=== PATIENT | male | born 1935 | race Caucasian/White ===

== ENCOUNTER 2020-11-12 17:10 | Outpatient (RCR) | payer MEDICARE, SELFPAY | END 2020-11-12 23:59 | LOC: IMMUN 17:10 | PROVIDERS: PCP Family Medicine; Visit Provider Family Medicine | DX: Z23 Encounter for immunization (principal) | CPT/HCPCS: 0011A; 0012A ==

== ENCOUNTER 2021-02-20 09:38 | Day surgery (SDC) | payer MEDICARE, SELFPAY ==
--- NOTE | 2021-02-19 11:06 | EKG12_ITS ---
Test Reason : PRE-OP Blood Pressure : / mmHG Vent. Rate : 088 BPM Atrial Rate : 088 BPM P-R Int : 206 ms QRS Dur : 130 ms QT Int : 362 ms P-R-T Axes : 040 -48 081 degrees QTc Int : 438 ms Normal sinus rhythm Left axis deviation Left bundle branch block Abnormal ECG Confirmed by HARPREET HERNANDES, LUIZ ([id number]), editor managing newspaper JASMIN SANTILLAN ([id number]) on 02/19/2021 2:27:47 PM Referred By: Omi Olsen Confirmed By:LUIZ MULLINS MD
[2021-02-20] VITALS (7 sets, daily range): BP systolic 118–165; BP diastolic 61–76; PULSE 70–90; RESP 16–18; TEMP 36.2–36.8; O2SAT 96–100; BMI 21.7
[2021-02-20] MEDS: Lactated Ringers 1,000 ML 100 ML IV (10:26)
[2021-02-20 11:05] LABS: Bedside Glucose 132 mg/dL (70-110)
[2021-02-20] MEDS: Cefazolin 2 GM in 0.9% Normal Saline 100 ML IV (13:35)
--- NOTE | 2021-02-20 13:43 | PCM.DC ---
Discharge Instructions Diet Discharge Diet: No restrictions Dressing / Incision Call your doctor if your incision/area has: Continuous Slow Oozing, Increased Pain/ Swelling, Increased Redness and Foul Smelling Discharge Call your doctor if you observe: Fever of 101 or Higher, Numbness or Tingling, Shortness of breath, Dizziness, Calf discomfort and Uncontrolled pain Follow Up Care Please Follow Up With: Omi Olsen MD Test Results: Test results from this visit will be discussed in further detail at your follow-up appointment, if applicable. Discharge Plan Admission Primary Reason for Your Visit: left stent placement Attending Provider: Omi Olsen Primary Care Provider: Bert Siegel Discharge Orders/Prescriptions Prescriptions: New ciprofloxacin HCl [Cipro] 500 mg tablet 500 mg PO BID Qty: 6 RF: 0 Continued aspirin 325 mg Tablet 162.5 mg PO DAILY RF: 0 isosorbide mononitrate 30 mg tablet extended release 24 hr 30 mg PO DAILY RF: 0 fenofibrate micronized 200 mg Capsule 200 mg PO DAILY RF: 0 simvastatin 40 mg tablet 40 mg PO QHS RF: 0 trandolapril 1 mg tablet 1 mg PO DAILY RF: 0 Janumet 50-1,000 mg tablet 1 tab PO BID RF: 0 tramadol 50 mg Tablet 50 mg PO Q6H PRN (Reason: Pain) RF: 0 Referrals / Follow Up: Omi Olsen MD [STAFF PHYSICIAN] - Bert Siegel MD [Primary Care Provider] - Disposition Discharge Orders: Discharge Patient (Routine); Ordered 02/20/21 Ordered By: Dr. Omi Olsen
--- NOTE | 2021-02-20 13:44 | PCM.HP.STD ---
HPI - General HPI Narrative RONNY REAGAN, is a 85 M who presents with an obstructing stone in the left ureter he has a history of coronary artery disease was followed by Dr. Marin but despite our best efforts were not able to get any records and the patient could not get a cardiology appointment before this visit he has been having pain from the stone so can place a stent, anesthesia did not want up in the sleep until we get cardiac clearance. So we can place a stent and then after cardiac clearance with a bring him back to do laser lithotripsy. [facility] Medical History (Updated 02/20/21 @ 13:[address] Omi Olsen MD) Arthritis Blind right eye CAD (coronary artery disease) Cardiology follow-up encounter Diabetes High cholesterol History of atrial fibrillation History of edema Hx of fracture of arm Hypertension Non-smoker Shortness of breath on exertion Home Medications Janumet 1 tab PO BID 02/14/21 [History Last Taken Unknown] aspirin 162.5 mg PO DAILY 02/14/21 [History Last Taken 02/11/21] fenofibrate micronized 200 mg PO DAILY 02/14/21 [History Last Taken Unknown] isosorbide mononitrate 30 mg PO DAILY 02/14/21 [History Last Taken Unknown] simvastatin 40 mg PO QHS 02/14/21 [History Last Taken Unknown] trandolapril 1 mg PO DAILY 02/14/21 [History Last Taken Unknown] tramadol 50 mg PO Q6H PRN 02/19/21 [History Last Taken Unknown] ciprofloxacin HCl [Cipro] 500 mg PO BID #6 tab 02/20/21 [Rx Last Taken Unknown] Allergy/AdvReac Type Severity Reaction Status Date / Time No Known Allergies Allergy Verified 02/14/21 09:57 Surgical History (Updated 02/14/21 @ 10:15 by Keesha Jose) Hx of bilateral inguinal hernia repair Hx of cataract surgery Hx of inguinal hernia repair Social History Smoking Status: Never smoker Vital Signs Vital Signs Vital Signs: 02/20/21 10:11 Temperature 97.1 F L Temperature Source Oral Pulse Rate 90 Respiratory Rate 18 Respiratory Pattern Normal Blood Pressure 149/76 H Blood Pressure Mean 100 Blood Pressure Source Monitor Blood Pressure Position Semi-Fowlers Blood Pressure Location Left Arm Pulse Ox 98 Oxygen Delivery Method Room Air Weight Weight: 68.6 kg Body Mass Index (BMI) 21.7 Physical Exam Const alert and oriented x3 General Appearance: cooperative HEENT normocephalic, head/scalp atraumatic, EAC's normal and TM's normal bilaterally Eyes PERRL and EOMs intact bilaterally Pupil: sluggish Neck no lymphadenopathy, supple and no JVD General: trachea midline Lymph Lymphatic: no lymphadenopathy noted, lymphedema and lymphadenopathy Resp normal respiratory effort, normal air movement and clear to auscultation bilaterally Cardio regular rate, regular rhythm and peripheral pulses 2+ throughout GI soft to palpation, non-tender and non-distended Extremity normal capillary refill and no clubbing, cyanosis or edema General Extremity: no tenderness to palpation of joints or extremities Skin no rashes or lesions noted General Skin Exam: turgor normal Lesions: no lesions Rashes: no rashes Neuro CN's II-XII intact bilaterally Speech: speech normal Motor Exam: strength 5/5 throughout; Negative for general weakness Psych thought process normal, cooperative and affect normal Appearance: appropriate Results Lab / Micro Data Labs: Laboratory Results - last 24 hr 02/20/21 10:07 POC Glucose 132 H Assessment & Plan Assessment/Plan (1) Left ureteral calculus: PLAN: Plan for cystoscopy left stent placement after cardiac clearance will bring back for lithotripsy.
[2021-02-20] MEDS: Lidocaine Jelly 2% 20 ML Syringe (URO-JET) 20 APPLIC (13:48)
--- NOTE | 2021-02-20 14:06 | OP.PCM_ITS ---
Report of Operation Date of Procedure: 02/20/21 Pre-Operative Diagnosis: Large left ureteral calculus Post-Operative Diagnosis: Patient had passed a stone large bladder stone Surgery/Procedure Performed:: Cystoscopy laser of bladder stone, cystolitholapaxy, left retrograde pyelogram no stent Description of Surgical Findings:: Patient was taken back to the operating room after smooth induction of a MAC local anesthesia planned procedure today was a cystoscopy stent placement of the left side for an obstructing stone is fairly large seen on CAT scan at [facility]. The patient was taken back to the operating room and smooth induction of MAC local, penis and testicles were prepped and draped in usual sterile fashion I went into the bladder with a 21 [place] rigid cystourethroscope went inside the bladder I saw a very large 1.5 cm stone in the base of the bladder which I think it past from the left ureter, the left ureter was fairly capacious and wide open, also was a very strange upward facing ureter. At this point the patient was under MAC local he tolerated the cystoscopy fairly well so I proceeded with laser lithotripsy at this large stone and the stone was broken up into small pieces all evacuated out of the bladder. I then had to use an all bronze bridge and a Glidewire and a Pollack catheter and cannulated the left ureteral orifice which is very difficult orifice account cannulate given the strange location and strange way he was pointing inside the bladder I was able to get the Pollack catheter in the ureter and performed a retrograde pyelogram there was some J hooking of the ureter in the proximal ureter but then in the distal ureter contrast flowed fairly easily all the way down and there appeared to be no stone in the ureter. Therefore no stent was placed. I drained the bladder. Anesthesia was reversed. I will see him in the office for checkup and ultrasound of his kidney. Surgeon: Raúl Type of Anesthesia: General Drains: none Admit VTE Documentation VTE Present on Admission: No VTE Mechan Device Prophylaxis: SCD's
== END 2021-02-20 15:46 ==
LOC: SDC 09:39 → AC 09:40
PROVIDERS: PCP Family Medicine; Referring Provider Urology; Visit Provider Urology
PROC: (CPT 52317; principal; 2021-02-20 11:55)
DX: N21.0 Calculus in bladder (principal); I25.10 Atherosclerotic heart disease of native coronary artery without angina pectoris; M19.90 Unspecified osteoarthritis, unspecified site; E11.9 Type 2 diabetes mellitus without complications; E78.00 Pure hypercholesterolemia, unspecified; I48.91 Unspecified atrial fibrillation; I10 Essential (primary) hypertension; Z79.899 Other long term (current) drug therapy; Z79.82 Long term (current) use of aspirin; H54.40 Blindness, one eye, unspecified eye
CPT/HCPCS: 00910; 52317; 76000; 82962; 93005; J7120; C1769